=== PATIENT | male | born 1975 | race Caucasian/White ===

== ENCOUNTER 2017-01-13 15:38 | Emergency (ER) | payer OTHER ==
[2017-01-13 15:54] VITALS: RESP 16
--- NOTE | 2017-01-13 17:12 | EDPHY ---
H & P Time Seen by Provider: 01/13/17 16:37 HPI/ROS: CHIEF COMPLAINT: cold sore HISTORY OF PRESENT ILLNESS: 41-year-old male presents emergency department reporting he has a cold sore to his lower lip x1.5 weeks. Patient reports this is his 1st cold sore, he is dating a girl who has a history of cold sores. 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 Patient denies fevers, chills, nausea or vomiting. No abdominal pain, no genital sores, no urinary symptoms. REVIEW OF SYSTEMS: A comprehensive 10 point review of systems is otherwise negative aside from elements mentioned in the history of present illness. Smoking Status: Never smoked Constitutional: Initial Vital Signs Temperature (C) 36.8 C 01/13/17 15:45 Heart Rate 87 01/13/17 15:45 Respiratory Rate 16 01/13/17 15:45 Blood Pressure 121/76 H 01/13/17 15:45 O2 Sat (%) 98 01/13/17 15:45 O2 Delivery Mode Room Air Allergies/Adverse Reactions: Penicillins Allergy (Unknown, Verified 01/13/17 15:51) as a kid Home Medications: Medication Instructions Recorded Acyclovir 400 mg PO TID #30 tablet 01/13/17 LORazepam [Ativan (*)] 1 - 2 mg PO Q8HRS PRN #10 tab 01/13/17 MDM/Departure - Depart Disposition: Home, Routine, Self-Care Clinical Impression: Cold sore Condition: Good Instructions: Genital Herpes Simplex (ED), Oral Herpes Simplex Virus Infections (ED) Additional Instructions: Take acyclovir as prescribed. Follow up with the [facility] for any questions or concerns. Return to the emergency department for any new symptoms, questions or concerns. Prescriptions: LORazepam [Ativan (*)] 1 - 2 mg PO Q8HRS PRN #10 tab PRN Reason: Anxiety Acyclovir 400 mg PO TID #30 tablet Referrals: [facility] (ED,. [Edm Groups for Call Sched] - As per Instructions
[2017-01-13 17:46] VITALS: BP 124/79; PULSE 71; TEMP 97.9; O2SAT 95
== END 2017-01-13 17:46 | disposition home or self-care (01) ==
LOC: EEVIPCON 15:38
DX: B00.1 Herpesviral vesicular dermatitis (principal)